=== PATIENT | male | born 1965 | race Caucasian/White ===

== ENCOUNTER 2022-11-22 07:55 | Day surgery (SDC) | payer BC ==
[2022-11-17 09:25] VITALS: BMI 29.5
[2022-11-22] MEDS ORDERED: LIDOCAINE HCL/PF 2% SDV 5ML VIAL ONE (08:48)
[2022-11-22] MEDS ORDERED: PROPOFOL 20 ML ONE (08:49)
[2022-11-22] MEDS ORDERED: MIDAZOLAM HCL 2 MG/2 ML SINGLE DOSE VIAL ONE (08:49)
[2022-11-22] MEDS ORDERED: ONDANSETRON 4 MG/2 ML VIAL ONE (08:51)
[2022-11-22] MEDS ORDERED: KETOROLAC TROMETHAMINE 30 MG/1 ML VIAL ONE (08:51)
[2022-11-22] MEDS ORDERED: DEXAMETHASONE SOD PHOSPHATE 4 MG/1 ML VIAL ONE (08:51)
[2022-11-22 10:24] VITALS: BP 132/72; PULSE 71; RESP 20; TEMP 98
== END 2022-11-22 10:30 | disposition home or self-care (01) ==
LOC: FASU 07:55
PROVIDERS: ATTEND Orthopaedic Surgery Hand Surgery
PROC: 01N50ZZ Release Median Nerve, Open Approach (ICD-10-PCS; principal; 2022-11-22 09:19)
DX: G56.02 Carpal tunnel syndrome, left upper limb (principal)